=== PATIENT | male | born 1990 | race African-American/Black ===

== ENCOUNTER 2018-05-26 10:11 | Emergency (ER) | payer OTHER ==
[2018-05-26 10:24] VITALS: BP 124/49; PULSE 86; BMI 22.8
--- NOTE | 2018-05-26 10:52 | PDOC ---
History of Present Illness - General Chief Complaint: Sore Throat Stated Complaint: SORETHROAT FEVER Time Seen by Provider: 05/26/18 10:25 History Source: Patient Exam Limitations: No Limitations - History of Present Illness Initial Comments: 05/26/18 10:43 c/o cough sore throat for 3 days , coworkers with same symptoms. no fever, pt also requesting HIV testing. Past History - Past Medical History Allergies/Adverse Reactions: Allergies Allergy/AdvReac Type Severity Reaction Status Date / Time No Known Allergies Allergy Verified 05/26/18 10:24 Home Medications: Ambulatory Orders NK [No Known Home Medication] 09/29/16 Asthma: Yes COPD: No - Immunization History Immunization Up to Date: Yes - Suicide/Smoking/Psychosocial Hx Smoking History: Never smoked Hx Alcohol Use: No Drug/Substance Use Hx: No Substance Use Type: Marijuana Review of Systems - Review of Systems Able to Perform ROS?: Yes Is the patient limited Kiswahili proficient: No Constitutional: No: Symptoms Reported HEENTM: Yes: Symptoms Reported Respiratory: Yes: Cough *Physical Exam - Vital Signs Last Vital Signs Temp Pulse Resp BP Pulse Ox 86 18 124/49 99 05/26/18 10:21 05/26/18 10:21 05/26/18 10:21 05/26/18 10:21 - Physical Exam General Appearance: Yes: Nourished, Appropriately Dressed HEENT: positive: EOMI, JESSIE, Pharynx Normal. negative: Pharyngeal Erythema, Tonsillar Exudate, Tonsillar Erythema Neck: positive: Supple. negative: Tender Respiratory/Chest: positive: Lungs Clear, Normal Breath Sounds Cardiovascular: positive: Regular Rhythm, Regular Rate Musculoskeletal: positive: Normal Inspection Extremity: positive: Normal Capillary Refill, Normal Inspection, Normal Range of Motion Integumentary: positive: Normal Color, Dry, Warm Neurologic: positive: Fully Oriented, Alert, Normal Mood/Affect, Normal Response , Motor Strength 5/5 Medical Decision Making - Medical Decision Making 05/26/18 10:53 cc: sore throat cough the past 3 days missed work for 3 days pt requesting HIV testing pt has no fever now took nyquil last night no vomiting or pain , no wheezing. will check strep HIV *DC/Admit/Observation/Transfer Diagnosis at time of Disposition: Viral pharyngitis, Negative laboratory testing for HIV - Referrals Referrals: Aidee Bueno [Primary Care Provider] - - Patient Instructions Additional Instructions: gargle with warm salt water 4-5 times a day for sore throat. take advil as directed for pain or fever follow with your doctor this week for any worsening symptoms 05/26/18 1. As discussed, a screening test for the HIV virus was performed today. Your HIV test is Negative (normal). 2. As discussed, if you engaged in high risk-behavior in the three (3) months prior to this test, you could still potentially be at risk and you will need to be re-tested. 3. As discussed, avoid any high risk behavior (such as unprotected sex or needle-sharing) in the future to minimize the chances of zachary HIV. - Post Discharge Activity Forms/Work/School Notes: Back to Work
== END 2018-05-26 11:47 | disposition home or self-care (01) ==
LOC: JERFT 10:11
DX: J02.9 Acute pharyngitis, unspecified (principal); B97.89 Other viral agents as the cause of diseases classified elsewhere; Z11.3 Encounter for screening for infections with a predominantly sexual mode of transmission
CPT/HCPCS: 36415; 87070; 87389; 87430; 99281-25

== ENCOUNTER 2021-01-08 18:52 | Emergency (ER) | payer OTHER ==
[2021-01-08 19:32] VITALS: BP 118/66; PULSE 70; TEMP 98.2; BMI 22.1
[2021-01-08] MEDS ORDERED: AZITHROMYCIN 250 MG TABLET PO ONE (19:52)
[2021-01-08] MEDS ORDERED: GENTAMICIN IM ONE (20:00)
[2021-01-08] MEDS ORDERED: WATER IM ONE (20:00)
[2021-01-08] MEDS ORDERED: DEXTROSE 5% IM ONE (20:00)
[2021-01-08] MEDS ORDERED: GENTAMICIN SO4 80 MG/2 ML VIAL ONE (20:03)
[2021-01-08] MEDS ORDERED: AZITHROMYCIN 250 MG TABLET ONE (20:05)
== END 2021-01-08 20:43 | disposition home or self-care (01) ==
LOC: JERFT 18:52
DX: A54.9 Gonococcal infection, unspecified (principal)
CPT/HCPCS: 99284-25

== ENCOUNTER 2022-09-22 09:29 | Emergency (ER) | payer OTHER ==
[2022-09-22 09:38] VITALS: BP 144/52; PULSE 86; RESP 18; TEMP 99.4; BMI 22.2
== END 2022-09-22 10:30 | disposition home or self-care (01) ==
LOC: JER 09:29
DX: J06.9 Acute upper respiratory infection, unspecified (principal)
CPT/HCPCS: 0241U-QW; 99283-25

== ENCOUNTER 2023-01-15 11:29 | Emergency (ER) | payer OTHER ==
[2023-01-15 11:42] VITALS: BP 153/95; PULSE 96; RESP 16; TEMP 98; BMI 24.3
[2023-01-15] MEDS ORDERED: CYCLOBENZAPRINE HCL 10 MG TABLET (FP) PO ONE (12:10)
[2023-01-15] MEDS ORDERED: ACETAMINOPHEN 500 MG TABLET (FP) PO ONE (12:10)
[2023-01-15] MEDS ORDERED: IBUPROFEN 400 MG TABLET (FP) PO ONE ×2 (12:10→12:55)
[2023-01-15] MEDS ORDERED: CYCLOBENZAPRINE HCL 10 MG TABLET (FP) ONE (12:54)
[2023-01-15] MEDS ORDERED: ACETAMINOPHEN 500 MG TABLET (FP) ONE (12:55)
== END 2023-01-15 13:13 | disposition home or self-care (01) ==
LOC: JERFT 11:29
DX: M54.2 Cervicalgia (principal); M54.6 Pain in thoracic spine; M54.50 Low back pain, unspecified; M79.605 Pain in left leg; V49.40XA Driver injured in collision with unspecified motor vehicles in traffic accident, initial encounter; Y93.I9 Activity, other involving external motion
CPT/HCPCS: 71045-TC-FY; 73000-TC-LT-FY; 99283-25